=== PATIENT | male | born 1950 | race Caucasian/White ===

== ENCOUNTER 2017-12-26 20:20 | Emergency (ER) | payer MEDICARE ==
[~2017-12-26] VITALS: Ht 170.2 cm; Wt 67.6 kg
[~2017-12-26 20:20] MED LIST: ASPIR 8181 MG ORAL; ATIVAN0.5 MG ORAL; CIPROFLOXACIN500 M2 ORAL; FLOMAX0.4 MG ORAL; LISINOPRIL10 MG ORAL; PROSCAR5 MG ORAL; TRUVADA 200 MG1 EAC1 ORAL; [UNRECOGNIZED DRUG - OTHER]
[2017-12-26] MEDS ORDERED: IBUPROFEN600 MG ORAL (21:12)
--- NOTE | 2017-12-26 21:13 | Emergency Room Report ---
History of Present Illness General Chief Complaint: General Complaint Source: Patient, Medical Record Present Illness HPI Is a 67-year-old male with history of high blood pressure. He presents with chief complaint of sore throat and swollen glands. He was performing oral sex on his male partner and states that he had some sore throat afterward. The next day he has some the pain and swelling glands. He call his primary care doctor who prescribed azithromycin. He came in today because glands are more swollen and more pain. Denies any fever chills but denies any nausea vomiting. Denies any drainage. Eating and drinking without any problem. Said that his teeth Are hurting Allergies: Coded Allergies: PEANUT (Verified Allergy, Mild, 07/14/13) SOB PENICILLINS (Verified Allergy, Mild, 07/14/13) JOINT PAIN CODEINE (Verified Adverse Reaction, Mild, 07/14/13) VOMIT Patient History Past Medical History: see triage record, old chart reviewed, HTN Past Surgical History: other Pertinent Family History: none Social History: Denies: smoking Immunizations: other Reviewed Nursing Documentation: PMH: Agreed; PSxH: Agreed Nursing Documentation-PMH Past Medical History: No History, Except For Hx Hypertension: Yes Hx Gastrointestinal Problems: Yes - IBS Review of Systems Eye: Denies: eye pain, blurred vision ENT: Reports: throat pain; Denies: ear pain, nose congestion, throat swelling Respiratory: Denies: cough, shortness of breath Cardiovascular: Denies: chest pain, palpitations Gastrointestinal: Denies: abdominal pain, diarrhea, nausea, vomiting Musculoskeletal: Denies: back pain, joint pain Skin: Denies: rash Neurological: Denies: headache, numbness Endocrine: Denies: increased thirst, increased urine Hematologic/Lymphatic: Denies: easy bruising All Other Systems: negative except mentioned in HPI Physical Exam Vital Signs Date Time Temp Pulse Resp B/P (MAP) Pulse Ox O2 Delivery O2 Flow Rate FiO2 12/26/17 20:48 98.3 74 17 147/93 95 Room Air 98.2 vitals unremarkable Sp02 EP Interpretation: reviewed, normal General Appearance: well appearing, no apparent distress, alert Head: normocephalic, atraumatic Eyes: bilateral eye PERRL, bilateral eye EOMI ENT: hearing grossly normal, normal pharynx, other - no trismus. No exudates. Teeth are tender. No abscess. Neck: full range of motion, supple, no meningismus, tender - tender anterior cervical adenopathy bilaterally Respiratory: chest non-tender, lungs clear, normal breath sounds Cardiovascular #1: regular rate, rhythm, no murmur Gastrointestinal: normal bowel sounds, non tender, no mass, no organomegaly, no bruit, non-distended Musculoskeletal: back normal, gait/station normal, normal range of motion Psychiatric: mood/affect normal Skin: warm/dry Medical Decision Making Diagnostic Impression: Primary Impression: Pain, dental Additional Impression: Adenitis, acute ER Course Patient with dental pain and tender adenopathy. No evidence of any abscess. No evidence of any Ian angina or peritonsillar abscess. He currently on antibiotics and radiate. This may be just a viral illness. Nothing to I and D. no evidence of any blocked salivary glands. Last Vital Signs Date Time Temp Pulse Resp B/P (MAP) Pulse Ox O2 Delivery O2 Flow Rate FiO2 12/26/17 20:48 98.3 74 17 147/93 95 Room Air 98.2 Status: unchanged Disposition: HOME, SELF-CARE Condition: Stable Scripts Ibuprofen* (MOTRIN*) 600 Mg Tablet 600 MG ORAL THREE TIMES A DAY, #30 TAB 0 Refills Prov: KELLI TOPETE M.D. 12/26/17 Additional Instructions: Follow-up your doctor within 7 days. Follow-up with your dentist also. Return if symptom worsen. Salt water gargle. KELLI TOPETE M.D. Dec 26, 2017 21:13
[2017-12-26 21:22] VITALS: BP 147/93
== END 2017-12-26 22:30 | disposition home or self-care (01) ==
LOC: EMR 22:19
DX: L04.9 Acute lymphadenitis, unspecified (principal); K08.89 Other specified disorders of teeth and supporting structures; I10 Essential (primary) hypertension; Z88.0 Allergy status to penicillin; Z88.6 Allergy status to analgesic agent; Z91.010 Allergy to peanuts
CPT/HCPCS: 99282

== ENCOUNTER 2018-03-22 12:48 | Emergency (ER) | payer MEDICARE ==
[~2018-03-22] VITALS: Ht 170.2 cm; Wt 68.0 kg
[~2018-03-22 12:48] MED LIST changes: +IBUPROFEN600 MG ORAL
[2018-03-22 13:00] VITALS: BP 129/90
[2018-03-22] MEDS ORDERED: TESSALON PERLE100 MG ORAL (13:19)
[2018-03-22] MEDS ORDERED: TYLENOL EXTRA500 MG ORAL (13:19)
[2018-03-22] MEDS ORDERED: FLUTICASONE PRO16 G1 NASAL (13:19)
[2018-03-22] MEDS ORDERED: CLARITIN10 M1 ORAL (13:19)
--- NOTE | 2018-03-22 13:19 | Emergency Room Report ---
History of Present Illness General Chief Complaint: Upper Respiratory Illness Source: Patient, Medical Record (Chance Dorado) Present Illness HPI 67-year-old male patient presents the ER complaining of cough for the past week. Reports cough with green sputum, states his sputum smells "funny". Denies hemoptysis. Denies tooth pain. Denies fever, chest pain, shortness of breath. Reports runny nose during this time. States he has been taking NyQuil and TheraFlu T. Reports history of HIV, states his viral load is undetectable and his CD4 count is elevated. Reports he is traveling to [facility] in 9 days and would like some prophylactic antibiotics. States was not able to see his primary care provider so he came to the ER. (Chance Dorado) Allergies: Coded Allergies: PEANUT (Verified Allergy, Mild, 03/22/18) SOB PENICILLINS (Verified Allergy, Mild, 03/22/18) JOINT PAIN CODEINE (Verified Adverse Reaction, Mild, 03/22/18) VOMIT Patient History Past Medical History: see triage record Reviewed Nursing Documentation: PMH: Agreed; PSxH: Agreed (Chance Dorado) Nursing Documentation-PMH Past Medical History: No History, Except For Hx Hypertension: Yes Hx Gastrointestinal Problems: Yes - IBS (Chance Dorado) Review of Systems All Other Systems: negative except mentioned in HPI (Chance Dorado) Physical Exam Vital Signs Date Time Temp Pulse Resp B/P (MAP) Pulse Ox O2 Delivery O2 Flow Rate FiO2 03/22/18 12:52 97.9 89 16 131/87 94 Room Air Sp02 EP Interpretation: reviewed, normal General Appearance: well appearing, no apparent distress, alert, GCS 15, non- toxic Head: normocephalic, atraumatic, other - No maxillary or frontal sinus tenderness to palpation bilaterally Eyes: bilateral eye normal inspection, bilateral eye PERRL ENT: hearing grossly normal, normal pharynx, no angioedema, normal voice, TMs + canals normal, uvula midline, moist mucus membranes, nasal congestion, other - Uvula midline Neck: full range of motion, no bony tend Respiratory: lungs clear, normal breath sounds, no rhonchi, no respiratory distress, no accessory muscle use, no wheezing, speaking full sentences Cardiovascular #1: regular rate, rhythm, no edema Cardiovascular #2: 2+ radial (R), 2+ radial (L) Gastrointestinal: non tender, soft, no mass, non-distended, no guarding, no rebound Musculoskeletal: back normal, digits/nails normal, gait/station normal, normal range of motion, non-tender Neurologic: alert, oriented x3, responsive, motor strength/tone normal, sensory intact Psychiatric: mood/affect normal Skin: no rash Lymphatic: no adenopathy (Chance Dorado) Medical Decision Making PA Attestation Dr. Thompson is my supervising Physician whom patient management has been discussed with. (Chance Dorado) Medicare Attestation The history of [place] has been reviewed and management options for him have been examined and discussed by Adelso Thompson. I have personally examined and interviewed the patient. (Adelso Thompson MD) Diagnostic Impression: Primary Impression: Upper respiratory infection ER Course Pt presents to ED c/o cough with sputum. DDX considered but are not limited to influenza, viral URI, pneumonia, strep throat, rhinitis, sinusitis, otitis media, otitis externa. VITAL SIGNS are WNL, patient is afebrile. ER COURSE: Lungs clear to auscultation, no wheezes, rhonci or rales. patient afebrile. Low suspicion for pneumonia, will not order CXR at this time. no tonsillar exudates, no pharyngeal erythema, history of cough, no fever, no stridor, uvula midline, low suspicion for peritonsillar abscess. Likely viral etiology of symptoms. No signs of bacterial infection requiring antibiotics at this time. Informed patient cannot provide him prophylactic antibiotics. Symptomatic treatment. drink plenty of fluids. Followup with PCP for further treatment and/or referral as needed. DISCHARGE: -Rx given for Claritin -Rx given for Tylenol/Acetaminophen -Rx given for Tessalon perle for cough sx. -Rx given for fluticasone At this time pt is stable for d/c to home. Patient is resting comfortably, in no acute distress, nontoxic appearing. Patient to take medications as instructed Will provide with patient care instructions and any necessary prescriptions. Care plan and follow-up instructions provided. Patient instructed to follow-up with primary care provider in 3 - 5 days. Patient questions asked and answered. Patient reports understanding and agreement to treatment plan. ER precautions given. Patient instructed to return to ER immediately for any new or worsening of symptoms including but not limited to increasing SOB, persistent fever, intractable vomiting. - Please note that this Emergency Department Report was dictated using [employer] event specialist technology software, occasionally this can lead to erroneous entry secondary to interpretation by the dictation equipment. (Chance Dorado) Last Vital Signs Date Time Temp Pulse Resp B/P (MAP) Pulse Ox O2 Delivery O2 Flow Rate FiO2 03/22/18 12:52 97.9 89 16 131/87 94 Room Air (Chance Dorado) Disposition: HOME, SELF-CARE Condition: Stable Scripts Fluticasone Propionate* (FLUTICASONE PROPIONATE*) 16 Gm Becker.susp 1 SPRAY NASAL TWICE A DAY, #16 GM Prov: Chance Dorado 03/22/18 Loratadine (CLARITIN) 10 Mg Tab.rapdis 10 MG ORAL DAILY, #30 TAB Prov: Chance Dorado 03/22/18 Acetaminophen* (TYLENOL EXTRA STRENGTH*) 500 Mg Tablet 500 MG ORAL Q8H PRN for Prn Headache/Temp > 101, #30 TAB 0 Refills Prov: Chance Dorado 03/22/18 Benzonatate* (TESSALON PERLE*) 100 Mg Capsule 100 MG ORAL THREE TIMES A DAY, #15 PERLE Prov: Chance Dorado 03/22/18 Patient Instructions: Upper Respiratory Infection, Adult Additional Instructions: Followup with primary care provider in 3 -5 days. Take medications as directed. Patient questions asked and answered. ER precautions given, patient instructed to return to ER immediately for any new or worsening of symptoms. Chance Dorado Mar 22, 2018 13:19 Adelso Thompson MD Mar 24, 2018 14:09
== END 2018-03-22 13:59 | disposition home or self-care (01) ==
LOC: EMR 13:20
DX: J06.9 Acute upper respiratory infection, unspecified (principal); I10 Essential (primary) hypertension; K58.9 Irritable bowel syndrome, unspecified; Z88.6 Allergy status to analgesic agent; Z88.0 Allergy status to penicillin; Z91.010 Allergy to peanuts
CPT/HCPCS: 99283